=== PATIENT | female | born 2000 | race Caucasian/White ===

== ENCOUNTER 2025-04-16 20:44 | Emergency (ER) | payer OTHER, SELFPAY ==
[2025-04-16 20:57] VITALS: BP 149/94
[2025-04-16 21:19] LABS: Hematocrit 41.2 % (37.0-47.0); Hemoglobin 14.2 g/dL (12.0-16.0); Mean Corp Hgb Conc. 34.5 g/dL (33.0-37.0); Mean Corpuscular Volume 89.6 fL (81.0-99.0); Nucleated Red Blood Cells % 0 %; Platelet Count 239 10^3/uL (130-400); Red Cell Dist. Width 12.1 % (11.5-14.5)
[2025-04-16 21:36] LABS: ALT (SGPT) 16 U/L (0-35); AST (SGOT) 18 U/L (14-36); Albumin 5.0 g/dl (3.5-5.0); Alkaline Phosphatase 50 U/L (38-126); Blood Urea Nitrogen 13 mg/dl (7-17); Calcium 9.7 mg/dl (8.4-10.2); Carbon Dioxide 25 mmol/L (22-30); Chloride 105 mmol/L (98-107); Glucose 98 mg/dl (70-99); Potassium 4.0 mmol/L (3.5-5.1); Sodium 139 mmol/L (135-145); Total Protein 8.0 g/dl (6.3-8.2); eGFR > 60.00
[2025-04-16 22:55] VITALS: BMI 30.1
[2025-04-16] MEDS: PERCOCET 5/325 1 TABLET PO (22:56)
--- NOTE | 2025-04-17 00:07 | ED.GENMED ---
History of Present Illness
General
Chief Complaint: Ear Problem
Source: patient
Exam Limitations: none
Time Seen by Provider: 04/16/25 22:36
Nursing documentation reviewed up to this point in time: agreed with
History of Present Illness
History of Present Illness:
Patient to the emergency department with complaint of severe pain to right ear. States she developed symptoms of URI approximately 1 week ago. She was seen yesterday by urgent care for right ear symptoms. She was told that she had a sinus
infection and was placed on azithromycin. States today her right ear pain began to worsen. She is taking Tylenol which initially was helpful, but now she reports there is no improvement in her level of pain. She denies fever or chills. To ED
with family for evaluation.
Past History
Past History
ED Past Medical History: None
ED Past Surgical History: None
Review of Systems
Review of Systems
Allergies reviewed?: Yes
All Other Systems: ROS reviewed and negative except as documented in HPI and ROS
Constitutional: Reports no symptoms
EENT: Reports other (Right ear pain.)
Respiratory: Reports no symptoms
Cardiac: Reports no symptoms
ABD/GI: Reports no symptoms
: Reports no symptoms
Musculoskeletal: Reports no symptoms
Skin: Reports other (Erythema present to right outer ear)
Neurological: Reports no symptoms
Psychiatric: Reports no symptoms
Phy Exam
General Physical Exam
General Presentation: moderate distress
General age: appears stated age
General Skin: warm and dry
General Habitus: normal
General Mental: alert
ENT Exam
ENT Exam: EOMI, pharynx normal, neck supple, swallowing well and other (Left TM and canal clear. Right canal red and swollen, exudate present. Right TM red and bulging.)
Eye Exam
Eye Exam: PERRL, EOMI, conjunctiva normal and globe normal
Neurological Exam
Neurological Exam: alert, oriented x3 and CN II-XII intact
Musculoskeletal Exam
Musculoskeletal Exam: full ROM and neuro vasc intact
Skin Exam
Skin Exam: normal color, warm/dry and no rash
Psychiatric Exam
Psychiatric Exam: normal mood/affect
Course
Orders/Labs/Results
Orders:
Orders
04/16/25 21:10
CMP [Comprehensive Metabolic Panel] Urgent
Complete Blood Count/With Diff Urgent
04/16/25 22:42
Oxycodone/Acetaminophen [Percocet 5/325] 1 tablet PO NOW STA
04/16/25 22:44
CT Temporal-iac W/o Iv Contras Urgent
Comment:
Reason For Exam: severe Right ear pain, erythema, swelling
04/17/25 00:02
Doxycycline [Vibramycin] 100 mg PO NOW STA
Neomycin/Polymyxin/Hc [Cortisporin Otic Suspension] See Dose Instructions OTIC NOW STA
Abnormal Lab Results
04/16/25
21:10
Absolute Neuts (auto) 6.6 H 10^3/uL
(1.4-6.5)
Lymphocytes % 17.4 L %
(20.5-51.1)
04/16/25 21:10
04/16/25 21:10
Vital Signs
Initial and Last Documented VS:
Initial Vital Signs
Temp Pulse Resp BP Pulse Ox
98.5 F 95 18 149/94 98
04/16/25 20:57 04/16/25 20:57 04/16/25 20:57 04/16/25 20:57 04/16/25 20:57
Last Documented Vital Signs
Temp Pulse Resp BP Pulse Ox
98.5 F 95 18 149/94 98
04/16/25 20:57 04/16/25 20:57 04/16/25 22:00 04/16/25 20:57 04/16/25 20:57
*Radiology
Radiology exam reviewed: radiology read reviewed
*Pulse Oximetry
SaO2: 98
Oxygen Mode of Delivery: Room air
Patient hypoxic: no
*Critical Care Note
Total Time (30-74mins, 75-104mins- exclusive of procedures): Not Applicable
Update Note
Update Note:
Patient to the emergency department with complaint of severe right ear pain. She developed a URI symptoms approximately 1 week ago. She was started on azithromycin by urgent care for sinus infection. She had a dose yesterday and today and
continues with worsening pain to her right ear. On arrival to the ED she is awake and alert complaining of severe right ear pain, crying. Given Percocet on arrival to ED room with improvement in comfort level. Left canal and TM are clear no
evidence of infection. Right canal is red and swollen with exudate concerning for otitis externa. Visualized right TM is red and bulging consistent with otitis media. Erythema noted to right outer ear and posterior right ear. CT of the temporal
bone was obtained to rule out mastoiditis. No evidence of mastoiditis noted on CT. CT does confirm right otitis media and otitis externa. Will switch antibiotic from azithromycin to doxycycline 100 mg p.o. twice daily for 10 days. She was also
started on Cortisporin otic suspension drops 4 drops to her right ear 3 times daily. She will be discharged home tonight and will follow-up with her family doctor in 1 to 2 days. She was given instructions on signs and symptoms to return to the
emergency department and she is agreeable to this plan. Rx for [place] sent to pharmacy for pain control.
ED Attending Note
-
Portions of this chart may have been created with voice recognition software.� Occasional wrong word or��sound alike� substitutions may have occurred due to the inherent limitations of voice recognition software.
Discharge Plan
Departure
Patient Disposition: Home (Routine Discharge)
Date of Disposition: 04/17/25
Time of Disposition: 00:03
Patient with high blood pressure during this ER visit?: No
Condition: Good
Covid-19: Not Applicable
Discharge Problem:
Acute Otitis Externa, Otitis media
Instructions: Outer Ear Infection (DC), Ear infections in adults
Prescriptions:
New
doxycycline hyclate 100 mg tablet
100 mg PO BID Qty: 20 0RF
Cortisporin-TC 3.3-3-10-0.5 mg/mL drops,suspension
4 drp otic (ear) QID Qty: 10 0RF
hydrocodone-acetaminophen 5-325 mg tablet
1 tab PO Q4H PRN (Reason: Pain) Qty: 10 0RF
Referrals:
Elijah Lema CRNP [Family Provider, Family Practice] - Follow up in 2-3 days
Activity Restrictions/Additional Instructions:
Return to the emergency department for any changes in/worsening of your symptoms
Interventions
Interventions:
*Risk Screen - Suicide Last Done: 04/16/25 20:57
*General Assessment Last Done: 04/16/25 20:57
*Neglect/Abuse Screening Last Done: 04/16/25 22:56
*ED- Fall Risk Assessment Last Done: 04/16/25 20:57
*ED COVID-19 Vaccine History Last Done: 04/16/25 20:57
*ED Influenza Vaccine History Last Done: 04/16/25 20:57
Discharge Date and Time
Print Language: ITALIAN
[2025-04-17] MEDS: VIBRAMYCIN 100 MG PO (00:19)
[2025-04-17] MEDS: CORTISPORIN OTIC SUSPENSION 1 DROP OTIC (00:19)
== END 2025-04-17 00:29 | disposition home or self-care (01) ==
LOC: EMR 20:44
PROVIDERS: Emergency Medicine; EMERGENCY PHYSICIAN Emergency Medicine; FAMILY PHYSICIAN Nurse Practitioner Family
DX: H66.91 Otitis media, unspecified, right ear (principal); H60.91 Unspecified otitis externa, right ear
CPT/HCPCS: 99284; 70480; 80053; 85025; 93005